=== PATIENT | female | born 1970 | race Caucasian/White ===

== ENCOUNTER 2019-04-17 09:35 | Emergency (ER) | payer MEDICAID, OTHER ==
[2019-04-17 09:47] VITALS: BP 139/70; PULSE 88
--- NOTE | 2019-04-17 10:01 | EDM.PDOC ---
ED HPI GENERAL MEDICAL PROBLEM - General Chief Complaint: Respiratory Problem Stated Complaint: body aches, fever, cough Time Seen by Provider: 04/17/19 09:47 Source of Information: Reports: Patient History Limitations: Reports: No Limitations - History of Present Illness INITIAL COMMENTS - FREE TEXT/NARRATIVE: This patient is a 48 year old female that presents to the ER. Patient reports that Thursday evening starting with headache, congestion, drainage, productive cough, body aches, chills, and fever. She reports working in [employer]. She reports working with someone who was diagnosed with the flu yesterday. Onset Date: 04/15/19 Duration: Day(s): (2) Location: Reports: Head Severity: Moderate Improves with: Reports: None Worsens with: Reports: None Associated Symptoms: Reports: Cough, cough w sputum, Fever/Chills, Headaches. Denies: Confusion, Chest Pain, Diaphoresis, Loss of Appetite, Malaise, Nausea/ Vomiting, Rash, Shortness of Breath, Syncope, Weakness - Related Data Allergies Allergy/AdvReac Type Severity Reaction Status Date / Time clindamycin Allergy Rash Verified 04/17/19 09:52 iron Allergy Stomach Verified 04/17/19 09:52 Upset rosuvastatin calcium Allergy Cannot Verified 04/17/19 09:52 [From Crestor] Remember Home Meds: Home Meds Acetaminophen [Tylenol Extra Strength] 500 mg PO Q4H PRN 06/15/13 [History] B12/Levomefolate Calcium/B-6 [Foltx Tablet] 1 each PO DAILY 06/15/13 [History] DULoxetine [Cymbalta] 60 mg PO DAILY 06/15/13 [History] Multivitamin [Multi Vitamin Daily] 1 each PO DAILY 06/15/13 [History] buPROPion HCl [Wellbutrin Xl] 150 mg PO DAILY 06/15/13 [History] tiZANidine [Zanaflex] 4 mg PO BEDTIME 06/15/13 [History] Oseltamivir [Tamiflu] 75 mg PO BID #10 cap 04/17/19 [Rx] ED ROS GENERAL - Review of Systems Review Of Systems: See Below Constitutional: Reports: Fever, Chills HEENT: Reports: Rhinitis, Sinus Problem Respiratory: Reports: Cough, Sputum. Denies: Shortness of Breath, Wheezing Cardiovascular: Reports: No Symptoms Endocrine: Reports: No Symptoms GI/Abdominal: Reports: No Symptoms : Reports: No Symptoms Musculoskeletal: Reports: Other (body aches) Skin: Reports: No Symptoms Neurological: Reports: Headache Psychiatric: Reports: No Symptoms Hematologic/Lymphatic: Reports: No Symptoms Immunologic: Reports: No Symptoms ED EXAM, GENERAL - Physical Exam Exam: See Below Exam Limited By: No Limitations General Appearance: Alert, WD/WN, No Apparent Distress Eye Exam: Bilateral Eye: Normal Inspection, PERRL Ears: Normal External Exam, Normal Canal, Hearing Grossly Normal, Normal TMs Ear Exam: Bilateral Ear: Auricle Normal, Canal Normal, TM normal Nose: Normal Inspection, Normal Mucosa, No Blood Throat/Mouth: Normal Inspection, Normal Lips, Normal Teeth, Normal Gums, Normal Oropharynx, Normal Voice, No Airway Compromise Head: Atraumatic, Normocephalic Neck: Normal Inspection, Supple, Non-Tender, Full Range of Motion Respiratory/Chest: No Respiratory Distress, Lungs Clear, Normal Breath Sounds, No Accessory Muscle Use Cardiovascular: Normal Peripheral Pulses, Regular Rate, Rhythm, No Edema, No Gallop, No JVD, No Murmur, No Rub Peripheral Pulses: 2+: Radial (L), Radial (R), Posterior Tibial (L), Posterior Tibial (R) Back Exam: Normal Inspection Extremities: Normal Inspection, Normal Range of Motion, Non-Tender, No Pedal Edema, Normal Capillary Refill Neurological: Alert, Oriented Psychiatric: Normal Affect, Normal Mood Skin Exam: Warm, Dry, Intact, Normal Color, No Rash Lymphatic: No Adenopathy Course - Vital Signs Last Recorded V/S: Last Vital Signs Temp 100.9 F H 04/17/19 09:38 Pulse 88 04/17/19 09:38 Resp 18 04/17/19 09:38 BP 139/70 04/17/19 09:38 Pulse Ox 96 04/17/19 09:38 - Orders/Labs/Meds Orders: Active Orders 24 hr Category Date Time Status Oseltamivir [Tamiflu] Med 04/17/19 09:56 Once 75 mg PO ONETIME ONE Departure - Departure Time of Disposition: 09:59 Disposition: Home, Self-Care 01 Condition: Fair Clinical Impression: Influenza - Discharge Information *PRESCRIPTION DRUG MONITORING PROGRAM REVIEWED*: Not Applicable *COPY OF PRESCRIPTION DRUG MONITORING REPORT IN PATIENT NOBLE: Not Applicable Prescriptions: Oseltamivir [Tamiflu] 75 mg PO BID #10 cap Instructions: Influenza, Adult, [id number] Additional Instructions: Followup with primary care provider Return to the ER for worsening of condition or any emergent concerns Increase fluids Over the counter medications Tamiflu 75mg 1 pill twice a day for 5 days #10 no refill Sepsis Event Note - Evaluation Sepsis Screening Result: No Definite Risk - Focused Exam Vital Signs: Vital Signs Temp Pulse Resp BP Pulse Ox 04/17/19 09:38 100.9 F H 88 18 139/70 96 Date Exam was Performed: 04/17/19 Time Exam was Performed: 09:56 - My Orders Last 24 Hours: My Active Orders 04/17/19 09:56 Oseltamivir [Tamiflu] 75 mg PO ONETIME ONE - Assessment/Plan Last 24 Hours: My Active Orders 04/17/19 09:56 Oseltamivir [Tamiflu] 75 mg PO ONETIME ONE Plan: PLEASE SEE RN NOTE FOR PFSH.
[2019-04-17] MEDS: Oseltamivir 75 MG Cap PO ONE (10:08)
== END 2019-04-17 10:10 | disposition home or self-care (01) ==
LOC: CC.ED 09:35
DX: J11.1 Influenza due to unidentified influenza virus with other respiratory manifestations (principal); Z88.8 Allergy status to other drugs, medicaments and biological substances; Z88.1 Allergy status to other antibiotic agents
CPT/HCPCS: 99283; A9270-GY

== ENCOUNTER 2022-03-10 07:06 | Observation (INO) | payer BC, MEDICAID ==
[2022-03-10] MEDS ORDERED: Sodium Chloride 0.9% 1,000 ML IV ONE (07:19)
[2022-03-10] MEDS ORDERED: Lactated Ringers 1,000 ML IV ONE (08:29)
[2022-03-10 08:39] LABS: CORONAVIRUS COVID-19 NAA NEGATIVE (NEGATIVE)
[2022-03-10] MEDS ORDERED: Ondansetron 4 MG/2 ML SDV IVPUSH ONE (08:39)
[2022-03-10] MEDS ORDERED: Lactated Ringers 1,000 ML IV SCH (09:45)
[2022-03-10] MEDS ORDERED: Acetaminophen 500 MG Tab PO PRN (14:39)
[2022-03-10] MEDS ORDERED: Ondansetron 4 MG Tab.DIS PO PRN (14:42)
[2022-03-10] MEDS: Lactated Ringers 1,000 ML IV SCH ×2 (14:46→23:43)
[2022-03-10] MEDS ORDERED: INSULN SUBCUT SCH (20:00)
[2022-03-10] MEDS ORDERED: LORAZEPAM 1 MG PO SCH (20:00)
[2022-03-10] MEDS ORDERED: GEMFIBROZIL 600 MG PO SCH (20:00)
[2022-03-10] MEDS ORDERED: ESTRADIOL 1 MG PO SCH (20:00)
[2022-03-10] MEDS ORDERED: Aspirin 81 MG Tab.EC PO SCH (20:00)
[2022-03-10] MEDS ORDERED: INSULIN DETEMIR 100 UNIT/ML SUBCUT SCH (20:00)
[2022-03-11 07:19] VITALS: PULSE 65
[2022-03-11 07:46] VITALS: BP 106/59
[2022-03-11] MEDS ORDERED: SITAGLIPTIN PHOSPHATE 25 MG PO SCH (08:00)
[2022-03-11] MEDS ORDERED: INSULIN DETEMIR 100 UNIT/ML SQ SCH (08:00)
[2022-03-11] MEDS ORDERED: Non-Formulary Medication 1 Each (B12/Levomefolate Calcium/B-6 [Foltx Tablet] 1 EACH Tablet PO SCH (08:00)
[2022-03-11] MEDS ORDERED: BUPROPION 150 MG PO SCH (08:00)
[2022-03-11] MEDS ORDERED: INSULN SQ SCH (08:00)
[2022-03-11] MEDS ORDERED: Multivitamin Tab PO SCH (08:00)
== END 2022-03-11 10:16 | disposition home or self-care (01) ==
LOC: CC.ED 07:06 → UNDOADMOB 14:37 → CC.MS 14:37
PROVIDERS: ADMIT Nurse Practitioner Family; ATTEND Physician Assistant Medical
DX: N17.9 Acute kidney failure, unspecified (principal); E86.0 Dehydration; E11.9 Type 2 diabetes mellitus without complications; E53.8 Deficiency of other specified B group vitamins; Z79.899 Other long term (current) drug therapy; Z20.822 Contact with and (suspected) exposure to COVID-19; Z90.49 Acquired absence of other specified parts of digestive tract; Z98.890 Other specified postprocedural states; Z79.4 Long term (current) use of insulin; Z88.1 Allergy status to other antibiotic agents; Z88.8 Allergy status to other drugs, medicaments and biological substances
CPT/HCPCS: 0240U; 36415; 71045; 74176; 80048; 80053; 81003; 82947; 84484; 85025; 85379; 86140; 93005; A9270; J2405; J7030; J7120